=== PATIENT | female | born 1940 | race Caucasian/White ===

== ENCOUNTER 2017-08-04 06:11 | Day surgery (SDC) | payer MEDICARE, OTHER ==
[~2017-08-04 06:11] MED LIST: AMLO5TAB2 PO; ASPI81CH4 PO; CELE100C82 PO; HYDR-531 PO; HYDR25TA4 PO; LORA1TAB12 PO; METO-169 PO; OMEP20CA74 PO; RAMI10CA38 PO; VENL75CA78 PO
[2017-08-04] MEDS ORDERED: LIDOCAINE 2%HCL (LOCAL ANESTH.) INJ 20ML MDV ONE (07:32)
[2017-08-04] MEDS ORDERED: IODIXANOL 320MG/ML 100ML BTL IV ONE (07:32)
[2017-08-04] MEDS ORDERED: methylPREDNISolone SOD SUCC 125 MG/2 ML VL ONE (08:10)
[2017-08-04] MEDS ORDERED: VERAPAMIL 2.5MG/ML INJ 2ML VIAL IV ONE (08:10)
[2017-08-04] MEDS ORDERED: diphenhdrAMINE HCL 50 MG/1 ML VL ONE (08:10)
[2017-08-04] MEDS ORDERED: MIDAZOLAM HCL 1MG/1ML-2 ML VIAL ONE (08:11)
[2017-08-04] MEDS ORDERED: fentaNYL CITRATE 100 MCG/2 ML VL ONE (08:15)
[2017-08-04] MEDS ORDERED: ANGIOMAX 250 MG VIAL IV ONE (08:27)
[2017-08-04] MEDS ORDERED: ADENOSINE 90 MG/30 ML INJ IV ONE (08:35)
== END 2017-08-04 13:20 | disposition home or self-care (01) ==
LOC: CATH 06:11
PROVIDERS: ATTEND Internal Medicine
DX: I25.10 Atherosclerotic heart disease of native coronary artery without angina pectoris (principal); Z95.1 Presence of aortocoronary bypass graft; Z88.0 Allergy status to penicillin; Z88.5 Allergy status to narcotic agent; Z88.1 Allergy status to other antibiotic agents; Z91.041 Radiographic dye allergy status; Z88.6 Allergy status to analgesic agent; Z88.8 Allergy status to other drugs, medicaments and biological substances; I10 Essential (primary) hypertension; K21.9 Gastro-esophageal reflux disease without esophagitis; E78.00 Pure hypercholesterolemia, unspecified; M19.90 Unspecified osteoarthritis, unspecified site; F32.9 Major depressive disorder, single episode, unspecified
CPT/HCPCS: 36600; 82805; 93458; 93571; 93886; C1769; C1887; C1894; J0153; J0583; J1200; J1644; J2250; J2930; J3010; J7030; Q9967; 99152; 99153; J7060

== ENCOUNTER → 2017-08-21 | Outpatient (CLI) | payer MEDICARE, OTHER ==
[~2017-08-21] MED LIST changes: +ALBUMIN 25% 250 ML IV ONE; +ALBUTEROL SULF 2.5 MG/0.5ML(0.5%) NEB SOLN ONE; +ATOR20TA50 PO; +FER325T PO; +FURO40TA4 PO; +MET50T PO; +MIDAZOLAM HCL 1MG/1ML-2 ML VIAL ONE; +NITROGLYCERIN 50MG/250ML 250 ML IV ONE; +POTA20TA53 PO; +PROPOFOL 200 ML IV ONE; +TRAM50TA2 PO; +fentaNYL CITRATE 100 MCG/2 ML VL ONE; +fentaNYL CITRATE 5 ML ONE
== END | disposition home or self-care (01) ==
LOC: RT 08:16
PROVIDERS: ATTEND Specialist
DX: Z01.810 Encounter for preprocedural cardiovascular examination (principal); I25.10 Atherosclerotic heart disease of native coronary artery without angina pectoris; J44.9 Chronic obstructive pulmonary disease, unspecified
CPT/HCPCS: 94060; 94640

== ENCOUNTER → 2017-08-24 | Outpatient (CLI) | payer MEDICARE, OTHER ==
[~2017-08-24] MED LIST changes: -ALBUMIN 25% 250 ML IV ONE; -ALBUTEROL SULF 2.5 MG/0.5ML(0.5%) NEB SOLN ONE; -MIDAZOLAM HCL 1MG/1ML-2 ML VIAL ONE; -NITROGLYCERIN 50MG/250ML 250 ML IV ONE; -PROPOFOL 200 ML IV ONE; -fentaNYL CITRATE 100 MCG/2 ML VL ONE; -fentaNYL CITRATE 5 ML ONE
== END | disposition home or self-care (01) ==
LOC: XY 07:30
PROVIDERS: ATTEND Thoracic Surgery (Cardiothoracic Vascular Surgery)
DX: I25.10 Atherosclerotic heart disease of native coronary artery without angina pectoris (principal)
CPT/HCPCS: 93306

== ENCOUNTER 2017-08-25 06:08 | Inpatient (IN) | payer MEDICARE, OTHER ==
[2017-08-24 10:33] LABS: Urine Bacteria None Seen /hpf (None Seen)
[2017-08-24 10:52] LABS: Basophils # (auto) 0 uL; Basophils % (auto) 0.4 % (0.0-2.0); Eosinophils # (auto) 0.2 uL; Eosinophils % (auto) 1.6 % (0.0-7.0); Hemoglobin 14.8 g/dL (12.2-16.2); Lymphocytes # (auto) 1.9 uL; Lymphocytes % (auto) 17.1 % (10.0-50.0); Mean Corpuscular Hemoglobin 28.5 pg (28.0-32.0); Mean Corpuscular Hgb Conc. 32.9 g/dL (32.0-36.0); Mean Corpuscular Volume 86.8 fL (80.0-100.0); Monocytes % (auto) 9.5 % (0.0-12.0); Neutrophils # (auto) 7.7 uL; Neutrophils % (auto) 71.4 % (37.0-80.0); Platelet Count (auto) 294 10^3/uL (140-450); Red Blood Cells 5.19 10^6/uL (4.0-5.20); Red Cell Distribution Width 14.2 % (11.8-14.3); White Blood Cell 10.8 10^3/uL (4.4-10.8)
[2017-08-24 10:56] LABS: INR 0.98 (0.9-1.15); Partial Thromboplastin Time 28.4 sec (22.64-33.71); Prothrombin Time 10.7 sec (9.37-12.3)
[2017-08-24 11:06] LABS: Albumin 3.8 g/dL (3.4-5.0); BUN/Creatinine Ratio 17.6; Bilirubin, Total 0.4 mg/dL (0.2-1.0); Calcium 8.7 mg/dL (8.5-10.1); Potassium 3.8 mmol/L (3.5-5.1); Total Protein 7.3 g/dL (6.4-8.2)
[2017-08-24 11:13] LABS: Urine Blood Normal /uL (Negative); Urine Specific Gravity 1.013 (1.001-1.035); Urine WBC 1 /hpf (0 - 5)
[2017-08-25] VITALS (48 sets, daily range): BP systolic 102–170; BP diastolic 43–78
[~2017-08-25] VITALS: Ht 154.9 cm; Wt 80.1 kg
[~2017-08-25 06:08] MED LIST changes: -ATOR20TA50 PO; -FER325T PO; -FURO40TA4 PO; -MET50T PO; -POTA20TA53 PO; -TRAM50TA2 PO
[2017-08-25] MEDS ORDERED: NEOMYCIN-BACITRACIN-POLYM 15GM TOP OINT TOP ONE (06:34)
[2017-08-25] MEDS ORDERED: BACITRACIN INJ 50000 UNIT VIAL ONE (06:34)
[2017-08-25] MEDS ORDERED: PAPAVERINE HCL 60 MG/2 ML 2ML VIAL ONE (06:34)
[2017-08-25] MEDS ORDERED: HEPARIN 1,000 UNITS/ml 1ML VIAL ONE (06:34)
[2017-08-25] MEDS ORDERED: VANCOMYCIN HCL 1000 MG VL ONE (06:55)
[2017-08-25] MEDS ORDERED: ALBUMIN 25% 400 ML IV ONE (08:24)
[2017-08-25] MEDS ORDERED: PHENYLEPHRINE INJ 20 MG in SODIUM CHL 0.9% 250 ML IV ONE (08:30)
[2017-08-25] MEDS ORDERED: InsuLIN R (HUMAN) 100 UNITS in SODIUM CHL 0.9% 99 ML IV ONE (08:30)
[2017-08-25] MEDS ORDERED: AMINOCAPROIC ACID 10 GM in SODIUM CHL 0.9% 100 ML IV ONE (08:30)
[2017-08-25] MEDS ORDERED: AMINOCAPROIC ACID 5 GM in SODIUM CHL 0.9% 250 ML IV ONE (08:30)
[2017-08-25] MEDS ORDERED: EPINEPHrine HCL 4 MG in D5W 5% 250 ML IV ONE (08:30)
[2017-08-25] MEDS ORDERED: CLINDAMYCIN 900MG IV 50 ML IV ONE (08:30)
[2017-08-25] MEDS ORDERED: VASOPRESSIN 50 UNITS in SODIUM CHL 0.9% 247.5 ML IV ONE (08:30)
[2017-08-25] MEDS ORDERED: NOREPINEPHRINE 8 MG/250ML KIT 250 ML IV ONE (08:30)
[2017-08-25] MEDS ORDERED: HEPARIN 30000 UNITS in SODIUM CHLORIDE 0.9% 1000 ML IV ONE (08:30)
[2017-08-25 13:06] LABS: Basophils # (auto) 0.1 uL; Basophils % (auto) 0.2 % (0.0-2.0); Eosinophils # (auto) 0.2 uL; Eosinophils % (auto) 0.8 % (0.0-7.0); Hematocrit 28.8 % (36.0-46.0); Hemoglobin 9.5 g/dL (12.2-16.2); Lymphocytes # (auto) 1.7 uL; Lymphocytes % (auto) 6.4 % (10.0-50.0); Mean Corpuscular Hemoglobin 28.7 pg (28.0-32.0); Mean Corpuscular Hgb Conc. 33.1 g/dL (32.0-36.0); Mean Corpuscular Volume 86.7 fL (80.0-100.0); Monocytes # (auto) 1.3 uL; Neutrophils # (auto) 23.5 uL; Neutrophils % (auto) 87.6 % (37.0-80.0); Platelet Count (auto) 232 10^3/uL (140-450); Red Blood Cells 3.32 10^6/uL (4.0-5.20); Red Cell Distribution Width 13.6 % (11.8-14.3); White Blood Cell 26.8 10^3/uL (4.4-10.8)
[2017-08-25 13:14] LABS: Albumin 3.8 g/dL (3.4-5.0); Bilirubin, Total 1.1 mg/dL (0.2-1.0); Potassium 3.5 mmol/L (3.5-5.1); Total Protein 5.7 g/dL (6.4-8.2)
[2017-08-25] MEDS ORDERED: INSULIN DRIP 100 UNIT/100ML 100 ML IV SCH (13:16)
[2017-08-25 13:17] LABS: INR 1.15 (0.9-1.15); Partial Thromboplastin Time 27.5 sec (22.64-33.71); Prothrombin Time 12.6 sec (9.37-12.3)
[2017-08-25] MEDS: NICARDIPINE 25MG/250ML BAG KIT 250 ML IV SCH ×3 (13:18→23:18)
[2017-08-25] MEDS: NOREPINEPHRINE 8 MG/250ML KIT 250 ML IV SCH (13:18)
[2017-08-25] MEDS: SODIUM CHLORIDE 0.9% 500 ML IV SCH (13:18)
[2017-08-25] MEDS ORDERED: NITROGLYCERIN 50MG/250ML 250 ML IV SCH (13:18)
[2017-08-25] MEDS: SODIUM CHLORIDE 0.9% 1,000 ML IV SCH (13:18)
[2017-08-25] MEDS ORDERED: AMIODARONE HCL 900 MG in DEXTROSE 500 ML IV SCH (13:28)
[2017-08-25] MEDS ORDERED: MORPHINE SULFATE 10 MG/ML INJ 1ML SDV IV PRN ×3 (13:30)
[2017-08-25] MEDS ORDERED: MAGNESIUM SULFATE 1GM/100ML 100 ML IV PRN (13:30)
[2017-08-25] MEDS ORDERED: fentaNYL CITRATE 100 MCG/2 ML VL IV PRN (13:30)
[2017-08-25] MEDS ORDERED: DEXTROSE (50%) 50ML SYRG IV PRN (13:30)
[2017-08-25] MEDS ORDERED: ZOLPIDEM TARTRATE 5 MG TAB PO PRN (13:30)
[2017-08-25] MEDS ORDERED: FUROSEMIDE 20 MG/2 ML VIAL IV PRN (13:30)
[2017-08-25] MEDS ORDERED: METOCLOPRAMIDE HCL 5MG/ml INJ 2ml VIAL IV PRN (13:30)
[2017-08-25] MEDS ORDERED: CALCIUM GLUC 4.65meq/50ml D5AE 50 ML IV PRN (13:30)
[2017-08-25] MEDS ORDERED: SODIUM BICARBONATE 8.4% INJ 50ML SYRINGE IV PRN (13:30)
[2017-08-25] MEDS ORDERED: AMIODARONE HCL 150 MG in D5W 5% 100 ML IV ONE (13:30)
[2017-08-25] MEDS ORDERED: ONDANSETRON HCL 4 MG/2 ML VIAL IV PRN (13:30)
[2017-08-25] MEDS: PROPOFOL 100 ML IV SCH ×2 (13:30→19:54)
[2017-08-25] MEDS ORDERED: ceFAZolin 1GM/50ML 50 ML IV SCH (13:30)
[2017-08-25] MEDS: ACCU-CHEK COMFORT CURVE STRIP VI SCH ×10 (14:00→23:07)
[2017-08-25] MEDS: ACETYLCYSTEINE 10 %(100MG/ML) SOL 4ML NEB SCH ×2 (14:10→17:46)
[2017-08-25] MEDS: IPRATROPIUM BROM 0.5 MG/2.5ML INH SOL NEB SCH ×3 (14:10→22:00)
[2017-08-25 14:26] LABS: Basophils # (auto) 0 uL; Basophils % (auto) 0.1 % (0.0-2.0); Eosinophils # (auto) 0.1 uL; Eosinophils % (auto) 0.3 % (0.0-7.0); Hematocrit 30.4 % (36.0-46.0); Mean Corpuscular Hemoglobin 28.5 pg (28.0-32.0); Mean Corpuscular Hgb Conc. 33.1 g/dL (32.0-36.0); Mean Corpuscular Volume 86.1 fL (80.0-100.0); Monocytes # (auto) 1.3 uL; Monocytes % (auto) 6.6 % (0.0-12.0); Neutrophils # (auto) 16.9 uL; Platelet Count (auto) 200 10^3/uL (140-450); Red Blood Cells 3.53 10^6/uL (4.0-5.20); Red Cell Distribution Width 14.1 % (11.8-14.3); White Blood Cell 19.2 10^3/uL (4.4-10.8)
[2017-08-25] MEDS: DEXMEDETOMIDINE HCL 400 MCG in D5W 5% 96 ML IV SCH (14:30)
[2017-08-25] MEDS ORDERED: HYDROmorphone HCL 2 MG/ML VL IV PRN (14:30)
[2017-08-25 14:42] LABS: Albumin 4.5 g/dL (3.4-5.0); BUN/Creatinine Ratio 18.6; Bilirubin, Total 1.3 mg/dL (0.2-1.0); Calcium 11.6 mg/dL (8.5-10.1); Phosphorus 1.5 mg/dL (2.5-4.90); Potassium 3.2 mmol/L (3.5-5.1); Total Protein 6.5 g/dL (6.4-8.2)
[2017-08-25] MEDS: ALBUMIN 5% 250 ML IV PRN ×3 (14:45→22:51)
[2017-08-25 14:46] LABS: INR 1.06 (0.9-1.15); Partial Thromboplastin Time 28.4 sec (22.64-33.71); Prothrombin Time 11.6 sec (9.37-12.3)
[2017-08-25 15:02] LABS: Magnesium 5.4 mg/dL (1.6-2.6)
[2017-08-25] MEDS: POTASSIUM CHL 20MEQ/50ML 50 ML IV PRN ×3 (15:46→20:22)
[2017-08-25] MEDS: AZTREONAM 1GM INJ 1 GM in D5W 5% 50 ML IV SCH ×2 (15:52→22:05)
[2017-08-25] MEDS ORDERED: PHENYLEPHRINE HCL 10 MG/ML VL IV ONE (18:41)
[2017-08-25] MEDS ORDERED: AMINOCAPROIC ACID 5 GM/20 ML VL IV ONE (18:41)
[2017-08-25] MEDS ORDERED: SODIUM BICARBONATE 8.4 % INJ 50ML VIAL IV ONE (18:41)
[2017-08-25] MEDS ORDERED: LIDOCAINE HCL 100 MG/5ML (2%) SYRG INJ IV ONE (18:41)
[2017-08-25] MEDS ORDERED: MAGNESIUM SULF 50% 40 MEQ/10 ML VL IV ONE (18:41)
[2017-08-25] MEDS ORDERED: ADENOSINE 6 MG/2 ML INJ IV ONE (18:41)
[2017-08-25] MEDS ORDERED: DEXAMETHASONE SODIUM PHOSP 120 MG/30ml VIAL IV ONE (18:41)
[2017-08-25] MEDS ORDERED: POTASSIUM CHL 2MEQ/ML 20ML IV ONE (18:41)
[2017-08-25] MEDS ORDERED: CALCIUM CHLOR(10%) 100MG/ML 10ML SYRINGE IV ONE (18:41)
[2017-08-25] MEDS: AMIODARONE HCL 900 MG in DEXTROSE 500 ML IV SCH (19:28)
[2017-08-25] MEDS: VANCOMYCIN 1GM/250ML 250 ML IV SCH (19:53)
[2017-08-25] MEDS: fentaNYL CITRATE 100 MCG/2 ML VL IV PRN (20:19)
[2017-08-25] MEDS: CHLORHEXIDINE 0.12% ORAL rinse 473ML MT SCH (22:05)
[2017-08-25 22:27] LABS: BUN/Creatinine Ratio 17.5; Calcium 9.3 mg/dL (8.5-10.1); Magnesium 3.8 mg/dL (1.6-2.6); Phosphorus 3.1 mg/dL (2.5-4.90); Potassium 4.1 mmol/L (3.5-5.1)
[2017-08-25 22:30] LABS: Basophils # (auto) 0 uL; Basophils % (auto) 0.1 % (0.0-2.0); Eosinophils # (auto) 0 uL; Hematocrit 25.1 % (36.0-46.0); Lymphocytes # (auto) 0.7 uL; Monocytes # (auto) 0.7 uL
[2017-08-25 22:32] LABS: Hemoglobin 8.3 g/dL (12.2-16.2); Lymphocytes % (auto) 4.9 % (10.0-50.0); Mean Corpuscular Hemoglobin 28.7 pg (28.0-32.0); Mean Corpuscular Volume 87.1 fL (80.0-100.0); Neutrophils # (auto) 12.6 uL; Platelet Count (auto) 165 10^3/uL (140-450); Red Blood Cells 2.88 10^6/uL (4.0-5.20); Red Cell Distribution Width 14.4 % (11.8-14.3)
[2017-08-26] VITALS (72 sets, daily range): BP systolic 98–157; BP diastolic 41–83
[2017-08-26] MEDS: ACCU-CHEK COMFORT CURVE STRIP VI SCH ×16 (00:01→20:24)
[2017-08-26] MEDS: SODIUM CHLORIDE 0.9% 1,000 ML IV SCH ×2 (00:25→12:26)
[2017-08-26] MEDS: fentaNYL CITRATE 100 MCG/2 ML VL IV PRN ×8 (00:31→21:52)
[2017-08-26] MEDS: IPRATROPIUM BROM 0.5 MG/2.5ML INH SOL NEB SCH ×5 (02:00→22:05)
[2017-08-26 04:08] LABS: Basophils # (auto) 0 uL; Eosinophils # (auto) 0 uL; Hematocrit 27.3 % (36.0-46.0); Hemoglobin 9.1 g/dL (12.2-16.2); Lymphocytes % (auto) 5.4 % (10.0-50.0); Mean Corpuscular Hemoglobin 28.8 pg (28.0-32.0); Mean Corpuscular Hgb Conc. 33.1 g/dL (32.0-36.0); Mean Corpuscular Volume 86.9 fL (80.0-100.0); Monocytes # (auto) 1.1 uL; Monocytes % (auto) 6.2 % (0.0-12.0); Neutrophils # (auto) 15.5 uL; Neutrophils % (auto) 88.4 % (37.0-80.0); Platelet Count (auto) 187 10^3/uL (140-450); Red Blood Cells 3.14 10^6/uL (4.0-5.20); Red Cell Distribution Width 14.3 % (11.8-14.3); White Blood Cell 17.5 10^3/uL (4.4-10.8)
[2017-08-26] MEDS: NICARDIPINE 25MG/250ML BAG KIT 250 ML IV SCH ×3 (04:18→14:18)
[2017-08-26 04:29] LABS: BUN/Creatinine Ratio 21.4; Magnesium 3.1 mg/dL (1.6-2.6); Phosphorus 4.4 mg/dL (2.5-4.90); Potassium 3.6 mmol/L (3.5-5.1)
[2017-08-26] MEDS: POTASSIUM CHL 20MEQ/50ML 50 ML IV PRN ×4 (04:58→20:00)
[2017-08-26] MEDS: DEXMEDETOMIDINE HCL 400 MCG in D5W 5% 96 ML IV SCH (05:50)
[2017-08-26] MEDS: AZTREONAM 1GM INJ 1 GM in D5W 5% 50 ML IV SCH ×3 (05:50→21:30)
[2017-08-26] MEDS: ACETYLCYSTEINE 10 %(100MG/ML) SOL 4ML NEB SCH ×2 (06:00→22:05)
[2017-08-26] MEDS: VANCOMYCIN 1GM/250ML 250 ML IV SCH ×2 (08:41→20:23)
[2017-08-26] MEDS ORDERED: ACETAMINOPHEN 650 mg PER 20 mL UD ONE (09:06)
[2017-08-26] MEDS ORDERED: ALBUMIN 25% 100 ML IV ONE ×2 (09:07→09:15)
[2017-08-26] MEDS: PANTOPRAZOLE 40 MG/10 ML VIAL IV SCH (09:14)
[2017-08-26] MEDS: ACETAMINOPHEN 650 mg PER 20 mL UD GT PRN (09:15)
[2017-08-26] MEDS: CHLORHEXIDINE 0.12% ORAL rinse 473ML MT SCH ×2 (09:15→21:30)
[2017-08-26 09:16] LABS: Magnesium 2.9 mg/dL (1.6-2.6); Potassium 4.4 mmol/L (3.5-5.1)
[2017-08-26 13:01] LABS: Basophils # (auto) 0 uL; Eosinophils # (auto) 0 uL; Hemoglobin 8.1 g/dL (12.2-16.2); Lymphocytes # (auto) 1.1 uL
[2017-08-26 13:03] LABS: Basophils % (auto) 0.1 % (0.0-2.0); Hematocrit 24.6 % (36.0-46.0); Mean Corpuscular Hgb Conc. 32.9 g/dL (32.0-36.0); Mean Corpuscular Volume 88.2 fL (80.0-100.0); Monocytes # (auto) 2.8 uL; Monocytes % (auto) 12.4 % (0.0-12.0); Neutrophils # (auto) 18.7 uL; Neutrophils % (auto) 82.5 % (37.0-80.0); Platelet Count (auto) 168 10^3/uL (140-450); Red Blood Cells 2.78 10^6/uL (4.0-5.20); Red Cell Distribution Width 15.1 % (11.8-14.3); White Blood Cell 22.6 10^3/uL (4.4-10.8)
[2017-08-26 13:14] LABS: Magnesium 2.8 mg/dL (1.6-2.6)
[2017-08-26] MEDS: SODIUM CHLORIDE 0.9% 500 ML IV SCH (13:54)
[2017-08-26] MEDS: NOREPINEPHRINE 8 MG/250ML KIT 250 ML IV SCH (13:54)
[2017-08-26] MEDS ORDERED: NITROGLYCERIN 0.2MG/HR TOPICAL PATCH TD ONE (14:00)
[2017-08-26] MEDS ORDERED: FUROSEMIDE 20 MG TAB PO ONE (14:30)
[2017-08-26] MEDS: InsuLIN REG 1unit/0.01ml Soln (100units/ml) SC SCH ×2 (16:08→20:24)
[2017-08-26] MEDS: HYDROcodone-ACET 10/325MG TAB PO PRN ×2 (16:14→20:16)
[2017-08-26] MEDS: PROPRANOLOL HCL 1 MG/ML VIAL IV PRN (16:52)
[2017-08-26] MEDS: METOPROLOL TARTRATE 25 MG TAB PO SCH (21:29)
[2017-08-26] MEDS ORDERED: POTASSIUM CHL 20 Meq TABLET PO SCH (22:00)
[2017-08-26 22:30] LABS: Basophils # (auto) 0 uL; Eosinophils # (auto) 0 uL; Hematocrit 26.8 % (36.0-46.0); Hemoglobin 8.7 g/dL (12.2-16.2); Lymphocytes # (auto) 1.8 uL; Lymphocytes % (auto) 7.5 % (10.0-50.0); Mean Corpuscular Hemoglobin 28.4 pg (28.0-32.0); Mean Corpuscular Hgb Conc. 32.5 g/dL (32.0-36.0); Mean Corpuscular Volume 87.2 fL (80.0-100.0); Monocytes # (auto) 2.4 uL; Monocytes % (auto) 10.1 % (0.0-12.0); Neutrophils # (auto) 19.6 uL; Neutrophils % (auto) 82.4 % (37.0-80.0); Platelet Count (auto) 174 10^3/uL (140-450); Red Blood Cells 3.08 10^6/uL (4.0-5.20); Red Cell Distribution Width 14.9 % (11.8-14.3); White Blood Cell 23.8 10^3/uL (4.4-10.8)
[2017-08-27] VITALS (34 sets, daily range): BP systolic 75–131; BP diastolic 33–73
[2017-08-27] MEDS: ACCU-CHEK COMFORT CURVE STRIP VI SCH ×6 (00:09→22:26)
[2017-08-27] MEDS: InsuLIN REG 1unit/0.01ml Soln (100units/ml) SC SCH ×6 (00:10→22:00)
[2017-08-27] MEDS: HYDROcodone-ACET 10/325MG TAB PO PRN ×4 (00:19→16:24)
[2017-08-27] MEDS: IPRATROPIUM BROM 0.5 MG/2.5ML INH SOL NEB SCH ×6 (02:00→22:21)
[2017-08-27 03:45] LABS: Basophils # (auto) 0 uL; Basophils % (auto) 0.1 % (0.0-2.0); Eosinophils # (auto) 0 uL; Hematocrit 25.5 % (36.0-46.0); Hemoglobin 8.7 g/dL (12.2-16.2); Lymphocytes # (auto) 2.2 uL; Mean Corpuscular Hemoglobin 29.4 pg (28.0-32.0); Mean Corpuscular Hgb Conc. 33.9 g/dL (32.0-36.0); Mean Corpuscular Volume 86.7 fL (80.0-100.0); Monocytes # (auto) 2.7 uL; Monocytes % (auto) 12.2 % (0.0-12.0); Neutrophils # (auto) 17.3 uL; Neutrophils % (auto) 77.7 % (37.0-80.0); Platelet Count (auto) 164 10^3/uL (140-450); Red Blood Cells 2.94 10^6/uL (4.0-5.20); Red Cell Distribution Width 14.8 % (11.8-14.3); White Blood Cell 22.3 10^3/uL (4.4-10.8)
[2017-08-27 03:55] LABS: INR 1.03 (0.9-1.15); Prothrombin Time 11.2 sec (9.37-12.3)
[2017-08-27 04:03] LABS: BUN/Creatinine Ratio 31.6; Calcium 8.4 mg/dL (8.5-10.1); Potassium 3.7 mmol/L (3.5-5.1)
[2017-08-27] MEDS: SODIUM CHLORIDE 0.9% 1,000 ML IV SCH ×2 (04:20→09:46)
[2017-08-27] MEDS: POTASSIUM CHL 20MEQ/50ML 50 ML IV PRN ×5 (05:06→22:35)
[2017-08-27] MEDS: NICARDIPINE 25MG/250ML BAG KIT 250 ML IV SCH ×5 (05:18→15:18)
[2017-08-27] MEDS: AZTREONAM 1GM INJ 1 GM in D5W 5% 50 ML IV SCH (06:00)
[2017-08-27] MEDS: ACETYLCYSTEINE 10 %(100MG/ML) SOL 4ML NEB SCH ×3 (06:59→22:21)
[2017-08-27] MEDS: fentaNYL CITRATE 100 MCG/2 ML VL IV PRN ×3 (07:35→16:51)
[2017-08-27] MEDS: VANCOMYCIN 1GM/250ML 250 ML IV SCH (07:45)
[2017-08-27] MEDS: AMIODARONE HCL 900 MG in DEXTROSE 500 ML IV SCH ×2 (07:46→19:28)
[2017-08-27] MEDS ORDERED: DOCUSATE SOD 100 MG CAP PO PRN (08:00)
[2017-08-27] MEDS: METOPROLOL TARTRATE 25 MG TAB PO SCH (08:03)
[2017-08-27] MEDS: CHLORHEXIDINE 0.12% ORAL rinse 473ML MT SCH ×3 (09:34→22:26)
[2017-08-27] MEDS: ASPirin 81 mg TAB PO SCH (09:34)
[2017-08-27] MEDS: PANTOPRAZOLE 40 MG/10 ML VIAL IV SCH (09:34)
[2017-08-27] MEDS ORDERED: FUROSEMIDE 20 MG TAB PO SCH (10:00)
[2017-08-27] MEDS ORDERED: POTASSIUM CHL 10% (20 MEQ/15ML) 15ml ORAL SOLN PO SCH (10:00)
[2017-08-27] MEDS ORDERED: NITROGLYCERIN 0.2MG/HR TOPICAL PATCH TD SCH (10:00)
[2017-08-27] MEDS: PROPRANOLOL HCL 1 MG/ML VIAL IV PRN (12:33)
[2017-08-27 12:41] LABS: Basophils # (auto) 0 uL; Basophils % (auto) 0.2 % (0.0-2.0); Eosinophils # (auto) 0 uL; Hemoglobin 8.7 g/dL (12.2-16.2); Lymphocytes # (auto) 2.1 uL; Lymphocytes % (auto) 9.7 % (10.0-50.0); Mean Corpuscular Hemoglobin 28.4 pg (28.0-32.0); Mean Corpuscular Hgb Conc. 32.4 g/dL (32.0-36.0); Mean Corpuscular Volume 87.8 fL (80.0-100.0); Monocytes # (auto) 2.4 uL; Monocytes % (auto) 11.2 % (0.0-12.0); Neutrophils # (auto) 17.1 uL; Neutrophils % (auto) 78.9 % (37.0-80.0); Platelet Count (auto) 188 10^3/uL (140-450); Red Blood Cells 3.07 10^6/uL (4.0-5.20); Red Cell Distribution Width 14.9 % (11.8-14.3); White Blood Cell 21.7 10^3/uL (4.4-10.8)
[2017-08-27 12:59] LABS: BUN/Creatinine Ratio 32.3; Bilirubin, Total 0.9 mg/dL (0.2-1.0); Calcium 8.1 mg/dL (8.5-10.1); Magnesium 2.5 mg/dL (1.6-2.6); Potassium 3.9 mmol/L (3.5-5.1); Total Protein 6.7 g/dL (6.4-8.2)
[2017-08-27] MEDS: SODIUM CHLORIDE 0.9% 500 ML IV SCH (13:18)
[2017-08-27] MEDS: NOREPINEPHRINE 8 MG/250ML KIT 250 ML IV SCH (13:18)
[2017-08-27] MEDS ORDERED: SODIUM FERR GLUC 62.5MG/5ML 125 MG in SODIUM CHL 0.9% 100 ML IV ONE (15:00)
[2017-08-27] MEDS ORDERED: METOPROLOL SUCCINATE XL 50 MG TAB PO ONE (15:15)
[2017-08-27] MEDS ORDERED: VENLAFAXINE HCL 37.5mg XR cap PO ONE (15:30)
[2017-08-27] MEDS ORDERED: SODIUM CHLORIDE 0.9% 1,000 ML IV SCH ×2 (15:45→16:45)
[2017-08-27] MEDS ORDERED: SENNA 8.6 MG TAB PO PRN (16:30)
[2017-08-27] MEDS ORDERED: METOCLOPRAMIDE HCL 5MG/ml INJ 2ml VIAL IV PRN (16:30)
[2017-08-27] MEDS ORDERED: ONDANSETRON HCL 4 MG/2 ML VIAL IV PRN (16:30)
[2017-08-27] MEDS ORDERED: THROAT LOZENGES(CEPASTAT) MT PRN (16:30)
[2017-08-27] MEDS ORDERED: DEXTROSE (50%) 50ML SYRG IV PRN ×2 (16:30)
[2017-08-27] MEDS ORDERED: POTASSIUM CHL 20 Meq TABLET PO PRN (16:30)
[2017-08-27] MEDS ORDERED: diphenhdrAMINE HCL 25 MG CAP PO PRN (16:30)
[2017-08-27] MEDS ORDERED: hydrALAZINE HCL 20 MG/ML VL IV PRN (16:45)
[2017-08-27] MEDS ORDERED: diphenhdrAMINE HCL 50 MG/1 ML VL IV PRN (16:45)
[2017-08-27] MEDS ORDERED: FAMOTIDINE (10MG/ML) 2ML VL IV ONE (16:45)
[2017-08-27] MEDS ORDERED: ACCU-CHEK COMFORT CURVE STRIP VI SCH (18:00)
[2017-08-27] MEDS: Boost Glucose Control 8 Ounces PO SCH (18:00)
[2017-08-27] MEDS: FERROUS SULFATE 325 MG TAB PO SCH (18:00)
[2017-08-27 18:08] LABS: Basophils # (auto) 0 uL; Eosinophils # (auto) 0 uL
[2017-08-27 18:10] LABS: Hematocrit 25.4 % (36.0-46.0); Hemoglobin 8.5 g/dL (12.2-16.2); Lymphocytes # (auto) 2.1 uL; Lymphocytes % (auto) 10.5 % (10.0-50.0); Mean Corpuscular Hemoglobin 28.9 pg (28.0-32.0); Mean Corpuscular Hgb Conc. 33.3 g/dL (32.0-36.0); Monocytes # (auto) 2.5 uL; Monocytes % (auto) 12.6 % (0.0-12.0); Neutrophils # (auto) 15.1 uL; Neutrophils % (auto) 76.9 % (37.0-80.0); Platelet Count (auto) 188 10^3/uL (140-450); Red Blood Cells 2.92 10^6/uL (4.0-5.20); Red Cell Distribution Width 14.5 % (11.8-14.3); White Blood Cell 19.7 10^3/uL (4.4-10.8)
[2017-08-27 18:17] LABS: Potassium 4.6 mmol/L (3.5-5.1)
[2017-08-27 18:19] LABS: Magnesium 2.1 mg/dL (1.6-2.6)
[2017-08-27] MEDS: FUROSEMIDE 40 MG TAB PO SCH (21:00)
[2017-08-27] MEDS: POTASSIUM CHL 20 Meq TABLET PO SCH (22:00)
[2017-08-27] MEDS: LORazepam 0.5 MG TAB PO SCH (22:26)
[2017-08-27] MEDS: ASCORBIC ACID 500 MG TAB PO SCH (22:26)
[2017-08-27] MEDS: ATORVASTATIN 20 MG TAB PO SCH (22:26)
[2017-08-27] MEDS: DOCUSATE SOD 100 MG CAP PO SCH (22:26)
[2017-08-27] MEDS: ACETAMINOPHEN 650 mg PER 20 mL UD GT PRN (22:27)
[2017-08-28] VITALS (34 sets, daily range): BP systolic 79–127; BP diastolic 35–64
[2017-08-28 00:54] LABS: Potassium 4.3 mmol/L (3.5-5.1)
[2017-08-28 00:59] LABS: Magnesium 2.4 mg/dL (1.6-2.6); Phosphorus 2.5 mg/dL (2.5-4.90)
[2017-08-28] MEDS: IPRATROPIUM BROM 0.5 MG/2.5ML INH SOL NEB SCH ×6 (02:00→22:02)
[2017-08-28] MEDS: ACETAMINOPHEN 650 mg PER 20 mL UD GT PRN (03:14)
[2017-08-28] MEDS: FUROSEMIDE 40 MG TAB PO SCH (05:34)
[2017-08-28] MEDS: InsuLIN REG 1unit/0.01ml Soln (100units/ml) SC SCH ×4 (05:34→22:00)
[2017-08-28] MEDS: ACCU-CHEK COMFORT CURVE STRIP VI SCH ×4 (05:34→22:00)
[2017-08-28 05:45] LABS: Basophils # (auto) 0 uL; Basophils % (auto) 0.2 % (0.0-2.0); Eosinophils # (auto) 0 uL; Eosinophils % (auto) 0.1 % (0.0-7.0); Hematocrit 26.2 % (36.0-46.0); Hemoglobin 8.7 g/dL (12.2-16.2); Lymphocytes # (auto) 1.8 uL; Lymphocytes % (auto) 11.7 % (10.0-50.0); Mean Corpuscular Hgb Conc. 33.1 g/dL (32.0-36.0); Mean Corpuscular Volume 87.6 fL (80.0-100.0); Monocytes # (auto) 1.7 uL; Monocytes % (auto) 11.5 % (0.0-12.0); Neutrophils # (auto) 11.6 uL; Neutrophils % (auto) 76.5 % (37.0-80.0); Platelet Count (auto) 152 10^3/uL (140-450); Red Blood Cells 2.99 10^6/uL (4.0-5.20); Red Cell Distribution Width 14.3 % (11.8-14.3); White Blood Cell 15.2 10^3/uL (4.4-10.8)
[2017-08-28 06:03] LABS: Albumin 3.4 g/dL (3.4-5.0); BUN/Creatinine Ratio 36.8; Calcium 8.4 mg/dL (8.5-10.1); Magnesium 2.3 mg/dL (1.6-2.6); Potassium 3.9 mmol/L (3.5-5.1)
[2017-08-28 06:05] LABS: Bilirubin, Total 0.6 mg/dL (0.2-1.0); Total Protein 5.9 g/dL (6.4-8.2)
[2017-08-28] MEDS: ACETYLCYSTEINE 10 %(100MG/ML) SOL 4ML NEB SCH ×3 (06:20→18:50)
[2017-08-28] MEDS: POTASSIUM CHL 20MEQ/50ML 50 ML IV PRN ×2 (07:15→08:22)
[2017-08-28] MEDS: LIDOCAINE 5% TOPICAL PATCH TOP SCH (07:35)
[2017-08-28] MEDS: POTASSIUM CHL 20 Meq TABLET PO SCH ×2 (08:21→22:00)
[2017-08-28] MEDS: Boost Glucose Control 8 Ounces PO SCH ×3 (09:09→16:29)
[2017-08-28] MEDS: FERROUS SULFATE 325 MG TAB PO SCH ×2 (09:09→17:16)
[2017-08-28] MEDS ORDERED: ALBUMIN 25% 50 ML IV ONE (09:30)
[2017-08-28] MEDS ORDERED: POTASSIUM CHL 20MEQ/100ML 100 ML IV PRN (09:30)
[2017-08-28] MEDS ORDERED: PANTOPRAZOLE 40 MG TAB PO SCH (10:00)
[2017-08-28] MEDS ORDERED: METOPROLOL SUCCINATE XL 50 MG TAB PO SCH (10:00)
[2017-08-28] MEDS ORDERED: SODIUM CHLORIDE 0.9% 1,000 ML IV SCH (10:15)
[2017-08-28] MEDS ORDERED: KETOROLAC TROMETH 30 MG/ML 1ML VIAL IV PRN (10:15)
[2017-08-28] MEDS: KETOROLAC TROMETH 30 MG/ML 1ML VIAL IV PRN ×2 (10:24→17:17)
[2017-08-28] MEDS: CHLORHEXIDINE 0.12% ORAL rinse 473ML MT SCH ×2 (11:45→22:00)
[2017-08-28] MEDS: NITROGLYCERIN 0.4MG/HR TOPICAL PATCH TD SCH (11:56)
[2017-08-28] MEDS: DOCUSATE SOD 100 MG CAP PO SCH ×2 (11:56→22:00)
[2017-08-28] MEDS: ASCORBIC ACID 500 MG TAB PO SCH ×2 (11:56→22:00)
[2017-08-28] MEDS: VENLAFAXINE HCL 37.5mg XR cap PO SCH (11:56)
[2017-08-28] MEDS: ASPirin 81 mg TAB PO SCH (11:56)
[2017-08-28] MEDS ORDERED: SODIUM FERR GLUC 62.5MG/5ML 125 MG in SODIUM CHL 0.9% 100 ML IV SCH (12:00)
[2017-08-28] MEDS: SODIUM CHLORIDE 0.9% 500 ML IV SCH (13:18)
[2017-08-28] MEDS: fentaNYL CITRATE 100 MCG/2 ML VL IV PRN ×2 (13:22→16:07)
[2017-08-28] MEDS ORDERED: METOPROLOL TARTRATE 25 MG TAB PO ONE (13:30)
[2017-08-28] MEDS: AMIODARONE HCL 900 MG in DEXTROSE 500 ML IV SCH (19:28)
[2017-08-28] MEDS: METOPROLOL TARTRATE 25 MG TAB PO SCH (22:00)
[2017-08-28] MEDS: LORazepam 0.5 MG TAB PO SCH (22:00)
[2017-08-28] MEDS: PANTOPRAZOLE 40 MG TAB PO SCH (22:00)
[2017-08-28] MEDS ORDERED: METOPROLOL TARTRATE 25 MG TAB PO SCH (22:00)
[2017-08-28] MEDS: ATORVASTATIN 20 MG TAB PO SCH (22:00)
[2017-08-28] MEDS: HYDROcodone-ACET 7.5/325MG TAB PO PRN (22:30)
[2017-08-29] VITALS (22 sets, daily range): BP systolic 93–129; BP diastolic 38–68
[2017-08-29] MEDS: KETOROLAC TROMETH 30 MG/ML 1ML VIAL IV PRN ×2 (01:38→15:30)
[2017-08-29 05:08] LABS: Basophils # (auto) 0 uL; Basophils % (auto) 0.1 % (0.0-2.0); Eosinophils # (auto) 0.2 uL; Hematocrit 26.5 % (36.0-46.0); Hemoglobin 8.8 g/dL (12.2-16.2); Lymphocytes # (auto) 2.5 uL; Lymphocytes % (auto) 15.7 % (10.0-50.0); Mean Corpuscular Hemoglobin 28.6 pg (28.0-32.0); Mean Corpuscular Hgb Conc. 33.2 g/dL (32.0-36.0); Mean Corpuscular Volume 86.3 fL (80.0-100.0); Monocytes # (auto) 1.8 uL; Monocytes % (auto) 10.9 % (0.0-12.0); Neutrophils # (auto) 11.7 uL; Neutrophils % (auto) 72.3 % (37.0-80.0); Platelet Count (auto) 194 10^3/uL (140-450); Red Blood Cells 3.07 10^6/uL (4.0-5.20); Red Cell Distribution Width 15.2 % (11.8-14.3); White Blood Cell 16.2 10^3/uL (4.4-10.8)
[2017-08-29 05:38] LABS: Albumin 3.6 g/dL (3.4-5.0); Calcium 8.5 mg/dL (8.5-10.1); Magnesium 2.4 mg/dL (1.6-2.6); Potassium 4.3 mmol/L (3.5-5.1); Total Protein 6.3 g/dL (6.4-8.2)
[2017-08-29] MEDS: IPRATROPIUM BROM 0.5 MG/2.5ML INH SOL NEB SCH ×6 (06:08→22:47)
[2017-08-29] MEDS: ACETYLCYSTEINE 10 %(100MG/ML) SOL 4ML NEB SCH ×3 (06:09→22:48)
[2017-08-29] MEDS: InsuLIN REG 1unit/0.01ml Soln (100units/ml) SC SCH ×3 (06:37→21:27)
[2017-08-29] MEDS: HYDROcodone-ACET 7.5/325MG TAB PO PRN ×3 (06:37→21:12)
[2017-08-29] MEDS: ACCU-CHEK COMFORT CURVE STRIP VI SCH ×4 (06:37→21:14)
[2017-08-29] MEDS: Boost Glucose Control 8 Ounces PO SCH ×3 (08:00→18:00)
[2017-08-29] MEDS: LIDOCAINE 5% TOPICAL PATCH TOP SCH (09:54)
[2017-08-29] MEDS: NITROGLYCERIN 0.4MG/HR TOPICAL PATCH TD SCH (09:55)
[2017-08-29] MEDS: METOPROLOL TARTRATE 25 MG TAB PO SCH (09:57)
[2017-08-29] MEDS: PANTOPRAZOLE 40 MG TAB PO SCH ×2 (09:57→21:13)
[2017-08-29] MEDS: ASCORBIC ACID 500 MG TAB PO SCH (09:57)
[2017-08-29] MEDS: POTASSIUM CHL 20 Meq TABLET PO SCH (09:57)
[2017-08-29] MEDS: VENLAFAXINE HCL 37.5mg XR cap PO SCH (09:58)
[2017-08-29] MEDS: FERROUS SULFATE 325 MG TAB PO SCH ×2 (09:58→18:06)
[2017-08-29] MEDS: DOCUSATE SOD 100 MG CAP PO SCH (10:00)
[2017-08-29] MEDS ORDERED: LACTULOSE 20Gm/30ML SOLN PO PRN (10:00)
[2017-08-29] MEDS: ASPirin 81 mg TAB PO SCH (10:00)
[2017-08-29] MEDS ORDERED: LACTULOSE 20Gm/30ML SOLN PO ONE (10:00)
[2017-08-29] MEDS: CHLORHEXIDINE 0.12% ORAL rinse 473ML MT SCH ×2 (10:06→21:14)
[2017-08-29] MEDS: SODIUM CHLORIDE 0.9% 500 ML IV SCH (13:18)
[2017-08-29] MEDS: SODIUM CHLORIDE 0.9% 1,000 ML IV SCH (13:30)
[2017-08-29] MEDS: METOPROLOL TARTRATE 50 MG TAB PO SCH (21:12)
[2017-08-29] MEDS: ATORVASTATIN 20 MG TAB PO SCH (21:12)
[2017-08-29] MEDS: LORazepam 0.5 MG TAB PO SCH (21:13)
[2017-08-30] VITALS (23 sets, daily range): BP systolic 94–132; BP diastolic 40–76
[2017-08-30] MEDS: IPRATROPIUM BROM 0.5 MG/2.5ML INH SOL NEB SCH ×6 (01:58→22:00)
[2017-08-30 04:58] LABS: Basophils # (auto) 0 uL; Basophils % (auto) 0.1 % (0.0-2.0); Eosinophils # (auto) 0.4 uL; Eosinophils % (auto) 2.8 % (0.0-7.0); Hematocrit 26.4 % (36.0-46.0); Hemoglobin 8.4 g/dL (12.2-16.2); Lymphocytes % (auto) 15.3 % (10.0-50.0); Mean Corpuscular Hemoglobin 28.4 pg (28.0-32.0); Mean Corpuscular Hgb Conc. 31.9 g/dL (32.0-36.0); Monocytes # (auto) 1.7 uL; Monocytes % (auto) 13.2 % (0.0-12.0); Neutrophils # (auto) 8.8 uL; Neutrophils % (auto) 68.6 % (37.0-80.0); Platelet Count (auto) 223 10^3/uL (140-450); Red Blood Cells 2.96 10^6/uL (4.0-5.20); Red Cell Distribution Width 15.5 % (11.8-14.3); White Blood Cell 12.8 10^3/uL (4.4-10.8)
[2017-08-30 05:10] LABS: Albumin 3.3 g/dL (3.4-5.0); BUN/Creatinine Ratio 38.7; Calcium 9.1 mg/dL (8.5-10.1); Magnesium 2.3 mg/dL (1.6-2.6); Potassium 4.3 mmol/L (3.5-5.1)
[2017-08-30 05:13] LABS: Bilirubin, Total 0.9 mg/dL (0.2-1.0)
[2017-08-30] MEDS: ACETYLCYSTEINE 10 %(100MG/ML) SOL 4ML NEB SCH ×3 (06:43→22:00)
[2017-08-30] MEDS: ACCU-CHEK COMFORT CURVE STRIP VI SCH ×4 (07:12→21:30)
[2017-08-30] MEDS: Boost Glucose Control 8 Ounces PO SCH ×3 (08:42→18:30)
[2017-08-30] MEDS: VENLAFAXINE HCL 37.5mg XR cap PO SCH (09:08)
[2017-08-30] MEDS: ASPirin 81 mg TAB PO SCH (09:08)
[2017-08-30] MEDS: METOPROLOL TARTRATE 50 MG TAB PO SCH ×2 (09:08→21:30)
[2017-08-30] MEDS: NITROGLYCERIN 0.4MG/HR TOPICAL PATCH TD SCH (09:08)
[2017-08-30] MEDS: FERROUS SULFATE 325 MG TAB PO SCH ×2 (09:09→18:31)
[2017-08-30] MEDS: HYDROcodone-ACET 7.5/325MG TAB PO PRN ×2 (09:09→13:44)
[2017-08-30] MEDS: PANTOPRAZOLE 40 MG TAB PO SCH ×2 (09:09→21:30)
[2017-08-30] MEDS: FUROSEMIDE 40 MG TAB PO SCH (09:09)
[2017-08-30] MEDS: CHLORHEXIDINE 0.12% ORAL rinse 473ML MT SCH ×2 (09:09→21:30)
[2017-08-30] MEDS: LIDOCAINE 5% TOPICAL PATCH TOP SCH (09:10)
[2017-08-30] MEDS: POTASSIUM CHL 20 Meq TABLET PO SCH (09:10)
[2017-08-30] MEDS: SODIUM CHLORIDE 0.9% 500 ML IV SCH (14:00)
[2017-08-30] MEDS: SODIUM CHLORIDE 0.9% 1,000 ML IV SCH (14:00)
[2017-08-30] MEDS: KETOROLAC TROMETH 30 MG/ML 1ML VIAL IV PRN (15:36)
[2017-08-30] MEDS: PROPRANOLOL HCL 1 MG/ML VIAL IV PRN ×2 (15:37→15:58)
[2017-08-30] MEDS: LORazepam 0.5 MG TAB PO SCH (21:30)
[2017-08-30] MEDS: InsuLIN REG 1unit/0.01ml Soln (100units/ml) SC SCH (21:30)
[2017-08-30] MEDS: ATORVASTATIN 20 MG TAB PO SCH (21:30)
[2017-08-31] VITALS (16 sets, daily range): BP systolic 102–142; BP diastolic 56–71
[2017-08-31] MEDS: IPRATROPIUM BROM 0.5 MG/2.5ML INH SOL NEB SCH ×4 (02:00→15:00)
[2017-08-31] MEDS: KETOROLAC TROMETH 30 MG/ML 1ML VIAL IV PRN (02:06)
[2017-08-31] MEDS: ACETYLCYSTEINE 10 %(100MG/ML) SOL 4ML NEB SCH ×2 (07:11→15:00)
[2017-08-31 08:04] LABS: Basophils # (auto) 0 uL; Basophils % (auto) 0.2 % (0.0-2.0); Eosinophils # (auto) 0.5 uL; Eosinophils % (auto) 3.2 % (0.0-7.0); Hematocrit 29.4 % (36.0-46.0); Hemoglobin 9.6 g/dL (12.2-16.2); Lymphocytes # (auto) 1.7 uL; Lymphocytes % (auto) 11.6 % (10.0-50.0); Mean Corpuscular Hemoglobin 28.5 pg (28.0-32.0); Mean Corpuscular Hgb Conc. 32.8 g/dL (32.0-36.0); Mean Corpuscular Volume 86.9 fL (80.0-100.0); Monocytes # (auto) 1.7 uL; Monocytes % (auto) 11.9 % (0.0-12.0); Neutrophils # (auto) 10.5 uL; Neutrophils % (auto) 73.1 % (37.0-80.0); Platelet Count (auto) 330 10^3/uL (140-450); Red Blood Cells 3.38 10^6/uL (4.0-5.20); White Blood Cell 14.3 10^3/uL (4.4-10.8)
[2017-08-31 08:35] LABS: BUN/Creatinine Ratio 29.7; Calcium 8.9 mg/dL (8.5-10.1); Potassium 3.6 mmol/L (3.5-5.1)
[2017-08-31] MEDS ORDERED: POTASSIUM CHL 20 Meq TABLET PO PRN (09:00)
[2017-08-31] MEDS: ACCU-CHEK COMFORT CURVE STRIP VI SCH ×2 (09:02→14:03)
[2017-08-31] MEDS: Boost Glucose Control 8 Ounces PO SCH ×2 (09:02→14:03)
[2017-08-31] MEDS: ASPirin 81 mg TAB PO SCH (09:05)
[2017-08-31] MEDS: PANTOPRAZOLE 40 MG TAB PO SCH (09:05)
[2017-08-31] MEDS: NITROGLYCERIN 0.4MG/HR TOPICAL PATCH TD SCH (09:05)
[2017-08-31] MEDS: POTASSIUM CHL 20 Meq TABLET PO SCH (09:05)
[2017-08-31] MEDS: FUROSEMIDE 40 MG TAB PO SCH (09:06)
[2017-08-31] MEDS: CHLORHEXIDINE 0.12% ORAL rinse 473ML MT SCH (09:06)
[2017-08-31] MEDS: METOPROLOL TARTRATE 50 MG TAB PO SCH (09:06)
[2017-08-31] MEDS: FERROUS SULFATE 325 MG TAB PO SCH (09:06)
[2017-08-31] MEDS: HYDROcodone-ACET 7.5/325MG TAB PO PRN ×2 (09:06→14:05)
[2017-08-31] MEDS: LIDOCAINE 5% TOPICAL PATCH TOP SCH (09:07)
[2017-08-31] MEDS: VENLAFAXINE HCL 37.5mg XR cap PO SCH (09:07)
[2017-08-31] MEDS ORDERED: FURO40TA4 PO (11:13)
[2017-08-31] MEDS ORDERED: POTA20TA53 PO (11:13)
[2017-08-31] MEDS ORDERED: TRAM50TA2 PO (11:13)
[2017-08-31] MEDS ORDERED: MET50T PO (11:13)
[2017-08-31] MEDS ORDERED: ATOR20TA50 PO (11:13)
[2017-08-31] MEDS ORDERED: FER325T PO (11:13)
[2017-08-31] MEDS: SODIUM CHLORIDE 0.9% 500 ML IV SCH (15:39)
[2017-08-31] MEDS: SODIUM CHLORIDE 0.9% 1,000 ML IV SCH (15:39)
[2017-08-31] MEDS ORDERED: ALUM & MAG HYDROX-SIMETH LIQ(MAALOX) 30 ML ONE (16:09)
[2017-08-31] MEDS ORDERED: ALUM & MAG HYDROX-SIMETH LIQ(MAALOX) 30 ML PO ONE (16:15)
== END 2017-08-31 16:45 | disposition home health service (06) | DRG 236 ==
LOC: SUR 06:08 → ICU WEST 06:09
PROVIDERS: ADMIT Specialist; ATTEND Internal Medicine Pulmonary Disease
PROC: 02100Z9 Bypass Coronary Artery, One Artery from Left Internal Mammary, Open Approach (ICD-10-PCS; 2017-08-25)
PROC: 06BP4ZZ Excision of Right Saphenous Vein, Percutaneous Endoscopic Approach (ICD-10-PCS; 2017-08-25)
PROC: 5A1221Z Performance of Cardiac Output, Continuous (ICD-10-PCS; 2017-08-25)
PROC: 021009W Bypass Coronary Artery, One Artery from Aorta with Autologous Venous Tissue, Open Approach (ICD-10-PCS; principal; 2017-08-25 07:23)
PROC: 30233N1 Transfusion of Nonautologous Red Blood Cells into Peripheral Vein, Percutaneous Approach (ICD-10-PCS; 2017-08-26)
PROC: 5A09357 Assistance with Respiratory Ventilation, Less than 24 Consecutive Hours, Continuous Positive Airway Pressure (ICD-10-PCS; 2017-08-28)
DX: I25.10 Atherosclerotic heart disease of native coronary artery without angina pectoris (principal); D64.9 Anemia, unspecified; G89.29 Other chronic pain; I70.0 Atherosclerosis of aorta; I10 Essential (primary) hypertension; Z88.5 Allergy status to narcotic agent; Z88.0 Allergy status to penicillin; Z88.8 Allergy status to other drugs, medicaments and biological substances; Z88.1 Allergy status to other antibiotic agents; Z91.041 Radiographic dye allergy status
CPT/HCPCS: 36415; 36600; 71045; 80048; 80053; 81001; 81025; 82270; 82805; 82962; 83735; 83880; 84100; 84132; 85025; 85576; 85610; 85730; 86850; 86900; 86901; 86920; 87070; 87081; 87205; 87493; 93005; 93306; 93971; 94002; 94003; 94640; 94660; 97116; 97163; 97530; C1751; C1768; C9113; J0153; J0610; J1100; J1642; J1644; J1815; J1885; J2405; J2440; J2704; J3490; J7060

== ENCOUNTER → 2017-11-09 | Outpatient (CLI) | payer MEDICARE, OTHER ==
[~2017-11-09] MED LIST changes: -AMLO5TAB2 PO; +ATOR20TA50 PO; +FER325T PO; +FURO40TA4 PO; -HYDR25TA4 PO; -METO-169 PO; +POTA20TA53 PO; +TRAM50TA2 PO
[2017-11-09 14:07] LABS: Urine Bacteria NONE SEEN /hpf (None Seen); Urine Blood Negative /uL (Negative); Urine WBC 1 /hpf (0 - 5)
[2017-11-09 15:02] LABS: Alcohol, Urine < 3.0 mg/dL (0-5); Amphetamine Screen, Urine NEGATIVE (NEGATIVE); Barbiturate Scree,Urine NEGATIVE (NEGATIVE); Benzodiazephine Screen, Urine NEGATIVE (NEGATIVE); Cannabinoid Screen, Urine NEGATIVE (NEGATIVE); Cocaine Screen, Urine NEGATIVE (NEGATIVE); Opiate Scree,Urine POSITIVE (NEGATIVE); Phencyclidine Screen, Urine NEGATIVE (NEGATIVE)
== END | disposition home or self-care (01) ==
LOC: LAB 13:28
PROVIDERS: ATTEND Internal Medicine
DX: M25.50 Pain in unspecified joint (principal); R53.83 Other fatigue; I10 Essential (primary) hypertension; J44.9 Chronic obstructive pulmonary disease, unspecified
CPT/HCPCS: 36415; 80307; 81001; 84439; 84443; 86225; 86235; 86812